=== PATIENT | female | born 1960 | race Caucasian/White ===

== ENCOUNTER 2017-07-24 10:51 | Emergency (ER) | payer BC ==
--- NOTE | 2017-07-24 12:05 | UC ---
Throat Pain/Nasal Roney HPI - HPI Summary HPI Summary: 56 year old female presents with complains of sinus congestion, cough and sore throat. - History of Current Complaint Stated Complaint: SINUS,SORE THROAT,EAR PAIN Time Seen by Provider: 07/24/17 12:05 Hx Obtained From: Patient Onset/Duration: Sudden Onset Severity: Moderate Pain Scale Used: 0-10 Numeric - 5 Cough: Nonproductive Associated Signs & Symptoms: Positive: Dysphagia - Allergies/Home Medications Allergies/Adverse Reactions: Allergies Allergy/AdvReac Type Severity Reaction Status Date / Time No Known Allergies Allergy Verified 07/24/17 12:04 Home Medications: Home Medications Escitalopram (NF) [Lexapro 10 mg (NF)] 10 mg PO EVERY OTHER DAY 07/24/17 [ History Confirmed 07/24/17] Levothyroxine TAB* [Synthroid TAB*] 100 mcg PO DAILY 07/24/17 [History Confirmed 07/24/17] Meloxicam(NF) [Mobic(NF)] 15 mg PO FR 07/24/17 [History Confirmed 07/24/17] Phenylephrine-Chlorpheniramine [Nicole-Natick Plus Cold &] 2 tab PO Q4H PRN 07/24 [History Confirmed 07/24/17] Triamterene/HCTZ 37.5-25 MG* [Dyazide CAP*] 1 cap PO DAILY 07/24/17 [History Confirmed 07/24/17] PMH/Surg Hx/FS Hx/Imm Hx Previously Healthy: Yes - Surgical History Surgical History: Yes Surgery Procedure, Year, and Place: APPY - Family History Known Family History: Positive: None - Social History Alcohol Use: Weekly Substance Use Type: None Smoking Status (MU): Current Every Day Smoker Type: Cigarettes Amount Used/How Often: 1/2 PK DAILY Review of Systems Constitutional: Negative Skin: Negative Eyes: Negative ENT: Sore Throat, Nasal Discharge, Sinus Congestion, Sinus Pain/Tenderness Respiratory: Cough Cardiovascular: Negative Gastrointestinal: Negative Genitourinary: Negative Motor: Negative Neurovascular: Negative Musculoskeletal: Negative Neurological: Negative Psychological: Negative All Other Systems Reviewed And Are Negative: Yes Physical Exam Triage Information Reviewed: Yes Vital Signs Reviewed: Yes Eye Exam: Normal ENT: Positive: Pharyngeal erythema, Nasal congestion, Nasal drainage, Sinus tenderness Dental Exam: Normal Neck exam: Normal Neck: Positive: 1 Respiratory Exam: Normal Respiratory: Positive: Rhonchi, Wheezing Cardiovascular Exam: Normal Abdominal Exam: Normal Musculoskeletal Exam: Normal Neurological Exam: Normal Psychological Exam: Normal Skin Exam: Normal Throat Pain/Nasal Course/Dx - Differential Dx/Diagnosis Provider Diagnoses: pharyngitis. sinus congestion. bronchitis Discharge - Discharge Plan Condition: Stable Disposition: HOME Prescriptions: Cefuroxime Axetil [Ceftin 500 MG TAB] 500 mg PO BID #20 tab Magic M W2 Aman/Maal/Nyst/Lido* 5 ml SWISH SPIT QID PRN #120 ml PRN Reason: Pain Patient Education Materials: Pharyngitis (ED), Sinusitis (ED) Referrals: Ezequiel Lara MD [Primary Care Provider] -
[2017-07-24 12:10] VITALS: BP 155/81
== END 2017-07-24 12:52 | disposition home or self-care (01) ==
LOC: UCCORT 10:51
DX: J02.9 Acute pharyngitis, unspecified (principal); R09.81 Nasal congestion; J40 Bronchitis, not specified as acute or chronic
CPT/HCPCS: 87651; 99212; G0463